=== PATIENT | female | born 1980 | race Two or more races ===

== ENCOUNTER 2024-12-28 22:07 | Emergency (ER) | payer MEDICAID, OTHER ==
[~2024-12-28] VITALS: Ht 157.5 cm; Wt 43.0 kg
[2024-12-28] MEDS: KETOROLAC TROMETH 60MG/2ML VIAL IM ONE (22:15)
--- NOTE | 2024-12-28 22:24 | ED.PDOC ---
HPI Comments 44 y/o F, with no prior medical history presents to the ED for CC of chest pain. Patient states, she has been experiencing intermittent substernal pressure like chest pain x1week radiating down left arm. Patient relays, associated symptoms of headache and dizziness. Patient denies cough, nausea, vomiting, diarrhea, fever, or palpitations. No other symptoms or modifying factors present at this time. Vital signs were stable at arrival Chief Complaint: Chest Pain Time Seen by MD: 22:20 Reviewed Notes: Nurses Notes, Medications, Allergies Allergies: Coded Allergies: NO KNOWN ALLERGIES (Unverified , 12/28/24) Information Source: Patient Mode of Arrival: Ambulatory Severity: Moderate Timing: Weeks Duration: Intermittent Prehospital treatment: None Location: Substernal Radiation: Arm (L) Quality: Pressure Onset: At Rest Cardiac Risk Factors: None PE Risk Factors: None History of: None Modifying Factors: Nothing Associated Signs and Symptoms: SOB Past Medical History PAST MEDICAL HISTORY: Denies Surgical History: Denies all surgeries RESEARCH NUTRITIONIST History: Denies all RESEARCH NUTRITIONIST Hx Family History Family History: Unknown Social History Smoker: Non-Smoker Alcohol: Denies ETOH Use Drugs: Denies Drug Use Lives In: Home Constitutional: denies: chills, diaphoresis, fatigue, fever, malaise, sweats, weakness, others EENTM: denies: blurred vision, double vision, ear bleeding, ear discharge, ear drainage, ear pain, ear ringing, eye pain, eye redness, hearing loss, mouth pain, mouth swelling, nasal discharge, nose bleeding, nose congestion, nose pain, photophobia, tearing, throat pain, throat swelling, voice changes, others Respiratory: reports: shortness of breath; denies: cough, hemoptysis, orthop anastasia, SOB at rest, SOB with excertion, stridor, wheezing, others Cardiovascular: reports: chest pain; denies: dizzy spells, diaphoresis, Dyspnea on exertion, edema, irregular heart beat, left arm pain, lightheadedness, palpitations, PND, syncope, others Gastrointestinal: denies: abdomen distended, abdominal pain, blood streaked bowels, constipated, diarrhea, dysphagia, difficulty swallowing, hematemesis, melena, nausea, poor appetite, poor fluid intake, rectal bleeding, rectal pain, vomiting, others Genitourinary: denies: abnormal vagina bleeding, burning, dyspareunia, dysuria, flank pain, frequency, hematuria, incontinence, pain, , vagina discharge, urgency, others Neurological: denies: dizziness, fainting, headache, left sided numbness, left sided weakness, numbness, paresthesia, pre-existing deficit, right sided numbness, right sided weakness, seizure, speech problems, tingling, tremors, weakness, others Musculoskeletal: denies: back pain, gout, joint pain, joint swelling, muscle pain, muscle stiffness, neck pain, others Integumetry: denies: bruises, change in color, change in hair/nails, dryness, laceration, lesions, lumps, rash, wounds, others Allergic/Immunocompromised: denies: Difficulty Healing, Frequent Infections, Hives, Itching, others Hematologic/Lymphatic: denies: anemia, blood clots, easy bleeding, easy bruising, swollen glands, others Endocrine: denies: excessive hunger, excessive sweating, excessive thirst, excessive urination, flushing, intolerance to cold, intolerance to heat, unexplained weight gain, unexplained weight loss, others Psychiatric: denies: anxiety, bipolar disorder, depression, hopeless, panic disorder, schizophrenia, sleepless, suicidal, others All Other Systems: Reviewed and Negative Physical Exam General Appearance: Mild Distress (Moderate distress due to chest pain concerns.), Normal HEENT: Normal ENT Inspection, Pharynx Normal, TMs Normal Neck: Full Range of Motion, Non-Tender, Normal, Normal Inspection Respiratory: Chest Non-Tender, Lungs Clear, No Accessory Muscle Use, No Respiratory Distress, Normal Breath Sounds, Other (Unremarkable auscultation bilateral lung mckeon.) Cardiovascular: No Edema, No JVD, No Murmur, No Gallop, Normal Peripheral Pulses, Regular Rate/Rhythm, Other (Unremarkable cardiac evaluation) Breast Exam: Deferred Gastrointestinal: No Organomegaly, Non Tender, No Pulsatile Mass, Normal Bowel Sounds, Soft Genitalia: Deferred Pelvic: Deferred Rectal: Deferred Extremities: No calf tenderness, Normal capillary refill, Normal inspection, Normal range of motion, Non-tender, No pedal edema Neurologic: Alert, No Motor Deficits, Normal Affect, Normal Mood, No Sensory Deficits Cerebellar Function: Normal Reflexes: Normal Skin: Dry, Normal Color, Warm Lymphatic: No Adenopathy Was a procedure done? Was a procedure done?: No CP Differential Dx Differential Diagnosis: Angina, ID Differential Diagnosis: HTN Essential, HTN Accelerated Differential Diagnosis: Chest Wall Pain, Costochondritis, Pneumonia X-Ray, Labs, Meds, VS Vital Signs Date Time Temp Pulse Resp B/P (MAP) Pulse Ox O2 Delivery O2 Flow Rate FiO2 12/28/24 22:35 68 12/28/24 22:07 98.0 96 18 120/68 (85) 98 98.0 Lab Test 12/28/24 23:11 12/28/24 22:20 12/28/24 22:11 Range/Units Troponin I High Sensitivity < 3 L < 3 L </=34 ng/L Urine Color Yellow Yellow Urine Clarity Turbid H Clear Urine pH 5.5 5.0-9.0 Urine Specific [place] 1.032 1.001-1.035 Urine Protein Negative Negative Urine Ketones Negative Negative Urine Blood Negative Negative /uL Urine Nitrite Negative Negative Urine Bilirubin Negative Negative Urine Urobilinogen Normal Negative mg/dL Urine Leukocyte Esterase Negative Negative /uL Urine RBC 3 0 - 4 /hpf Urine Microscopic WBC 2 0-5 /HPF Urine Squamous Epithelial Cells Few <5 /hpf Urine Bacteria Few H None Seen /hpf Urine Mucus Few None Seen Urine Glucose Normal Normal mg/dL White Blood Count 9.4 4.4-10.8 10^3/uL Red Blood Count 4.98 4.0-5.20 10^6/uL Hemoglobin 12.3 12.2-16.2 g/dL Hematocrit 38.0 36.0-46.0 % Mean Corpuscular Volume 76.3 L 80.0-100.0 fL Mean Corpuscular Hemoglobin 24.8 L 28.0-32.0 pg Mean Corpuscular Hemoglobin Concent 32.5 32.0-36.0 g/dL Red Cell Distribution Width 15.5 H 11.8-14.3 % Platelet Count 281 140-450 10^3/uL Mean Platelet Volume 9.4 6.9-10.8 fL Neutrophils (%) (Auto) 55.2 37.0-80.0 % Lymphocytes (%) (Auto) 29.1 10.0-50.0 % Monocytes (%) (Auto) 4.5 0.0-12.0 % Eosinophils (%) (Auto) 9.9 H 0.0-7.0 % Basophils (%) (Auto) 1.3 0.0-2.0 % Neutrophils # (Auto) 5.2 1.6-8.6 10 ^3/uL Lymphocytes # (Auto) 2.7 0.4-5.4 10 ^3/uL Monocytes # (Auto) 0.4 0-1.3 10 ^3/uL Eosinophils # (Auto) 0.9 H 0-0.8 10 ^3/uL Basophils # (Auto) 0.1 0-0.2 10 ^3/uL Nucleated Red Blood Cells 0.0 % Sodium Level 139 136-145 mmol/L Potassium Level 4.0 3.5-5.1 mmol/L Chloride Level 105 98-107 mmol/L Carbon Dioxide Level 26 20-31 mmol/L Anion Gap 8 5-15 Blood Urea Nitrogen 11 9-23 mg/dL Creatinine 0.62 0.550-1.02 mg/dL Glomerular Filtration Rate Calc 113 >90 mL/min BUN/Creatinine Ratio 17.7 10.0-20.0 Serum Glucose 84 74-106 mg/dL Calcium Level 9.6 8.7-10.4 mg/dL B-Type Natriuretic Peptide 23.78 0-100 pg/mL Lipase 49 12-53 U/L X-Ray, Labs, Meds, VS Comment Patient has some relief of symptoms status post medication dispensed. Performed in the ED were evaluated by me personally. Laboratories studies were unremarkable for any acute systemic concerns including unremarkable cardiac markers. EKG revealed a sinus rhythm with a rate of 68. Possible left ve ntricular hypertrophy. NC interval 150 and QT interval of 367. Chest x-ray was not required as the patient had no displaying signs of rhonchi or wheezing. Unknown cause of the patient's chest pain concerns. If the patient indeed has left ventricular hypertrophy, patient may have some arterial occlusion concerns that would need to be addressed through a cashier checker and additional labs. Advised patient if they continue, follow up with the primary care provider for continued evaluation and possible cardiologic referral Time of 1ST Reevaluation: 00:33 Reevaluation 1ST: Improved Consultation: PCP, Cardiology Patient Education/Counseling: Diagnosis, Treatment Family Education/Counseling: Diagnosis, Treatment, No Family Present Departure 1 Departure Time of Disposition: 00:35 Impression: Primary Impression: Chest pain Disposition: 01 HOME / SELF CARE / HOMELESS Condition: Stable Additional Instructions: Advised patient utilize medication as needed for symptomatic pain relief. If symptoms continue, patient will need to follow up with the primary care provider for possible cardiac referral and evaluation. e-Prescriptions Ibuprofen (Ibuprofen) 600 Mg Tab 1 TAB PO Q6HP PRN, #20 TAB Prov: PABLO CLAROS PAC 12/29/24 Discharged With: Self, Friend Critical Care Note Critical Care Time?: No Stability Stability form required: No Heart Score Heart Score: Heart Score Response (Comments) Value History Slightly Suspicious 0 EKG Repolarization Disturb 1 Age <45 0 Risk Factors No known risk factors 0 Troponin Normal limit 0 Total 1 I personally scribed for PABLO CLAROS PAC ([email or web address]) on 12/28/24 at 22:24. Electronically submitted by Pat Ppier ([email or web address]). PABLO CLAROS PAC Dec 28, 2024 22:24
[2024-12-28 22:33] LABS: Anion Gap 8 (5-15); Basophils # (auto) 0.1 10 ^3/uL (0-0.2); Carbon Dioxide 26 mmol/L (20-31); Chloride 105 mmol/L (98-107); Hemoglobin 12.3 g/dL (12.2-16.2); Monocytes # (auto) 0.4 10 ^3/uL (0-1.3); Neutrophils # (auto) 5.2 10 ^3/uL (1.6-8.6); Sodium 139 mmol/L (136-145); White Blood Cell 9.4 10^3/uL (4.4-10.8)
[2024-12-28 22:34] LABS: Basophils % (auto) 1.3 % (0.0-2.0); Calcium 9.6 mg/dL (8.7-10.4); Eosinophils # (auto) 0.9 10 ^3/uL (0-0.8); Eosinophils % (auto) 9.9 % (0.0-7.0); Lymphocytes # (auto) 2.7 10 ^3/uL (0.4-5.4); Lymphocytes % (auto) 29.1 % (10.0-50.0); Mean Corpuscular Hemoglobin 24.8 pg (28.0-32.0); Mean Corpuscular Hgb Conc. 32.5 g/dL (32.0-36.0); Mean Corpuscular Volume 76.3 fL (80.0-100.0); Monocytes % (auto) 4.5 % (0.0-12.0); Neutrophils % (auto) 55.2 % (37.0-80.0); Platelet Count (auto) 281 10^3/uL (140-450); Red Blood Cells 4.98 10^6/uL (4.0-5.20); Red Cell Distribution Width 15.5 % (11.8-14.3)
[2024-12-28 22:39] LABS: BUN/Creatinine Ratio 17.7 (10.0-20.0); Blood Urea Nitrogen 11 mg/dL (9-23); Glucose 84 mg/dL (74-106); Lipase 49 U/L (12-53)
[2024-12-28 22:42] LABS: Urine Bacteria FEW /hpf (None Seen); Urine Blood Negative /uL (Negative); Urine Clarity Turbid (Clear); Urine Color Yellow (Yellow); Urine Mucus FEW (None Seen); Urine Protein, UAD Negative (Negative); Urine Specific Gravity 1.032 (1.001-1.035); Urine Squamous Epithelial Cell FEW /hpf (<5); Urine Urobilinogen Normal (Negative); Urine WBC 2 /HPF (0-5); Urine pH 5.5 (5.0-9.0)
[2024-12-29] MEDS ORDERED: IBUP-1454 PO (00:36)
[2024-12-29 01:01] VITALS: BP 107/53; PULSE 53; RESP 16; TEMP 97.9; O2SAT 100
--- NOTE | 2024-12-31 12:05 | ECG ---
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
== END 2024-12-29 01:10 | disposition home or self-care (01) ==
LOC: ER 22:07
DX: R07.89 Other chest pain (principal); Z79.899 Other long term (current) drug therapy
CPT/HCPCS: 36415; 80048; 81001; 83690; 83880; 84484; 85025; 93005; 96372; 99284; J1885